=== PATIENT | female | born 1955 | race Caucasian/White ===

== ENCOUNTER → 2017-03-21 | Outpatient (CLI) | payer BC ==
[~2017-03-21] MED LIST: LEVOTHROID0.1 MG PO
--- NOTE | 2017-03-21 18:10 | RADIOLOGY REPORT PS360 ---
DIG MAMM-SCREEN [place] W/CAD CAD Screening ORDERING PHYSICIAN : Avery Nuñez MD PATIENT AGE: 61 years GENDER: Female COMPARISON: Previous mammograms: Previous mammogram from March 2016, 2014/November 2011,. November 2010 INDICATION: Routine screening 61-year-old. No hormones no new complaints noncontributory family history TECHNIQUE: Standard CC and MLO images were obtained. R2 CAD reviewed. FINDINGS: Moderate scattered fibroglandular elements bilaterally. No dominant mass nor suspicious calcification no significant new features. Stable architecture bilateral. RIGHT BREAST: Minor density at the lateral retroareolar region stable LEFT BREAST: No new findings. Stable minor asymmetric glandular tissue lateral left breast IMPRESSION: No significant interval change bilateral follow-up in one year recommended BI-RADS CATEGORY: 1_Negative RECOMMENDED FOLLOWUP: 12M 12 MONTH FOLLOW-UP (A letter has been sent to the patient regarding results of the study.)
== END ==
LOC: RAD 09:28
DX: Z12.31 Encounter for screening mammogram for malignant neoplasm of breast (principal)
CPT/HCPCS: G0202